=== PATIENT | female | born 1970 | race African-American/Black ===

== ENCOUNTER 2017-07-17 13:55 | Emergency (ER) | payer OTHER ==
[~2017-07-17] VITALS: Ht 162.6 cm; Wt 81.7 kg
[~2017-07-17 13:55] MED LIST: ATIVAN0.5 MG; BACTRIM DS TAB1 EACH PO
[2017-07-17 14:54] LABS: ABSOLUTE EOSINOPHILS 0.1 thou/uL (0.0-0.7); ABSOLUTE LYMPHOCYTES 3.4 thou/uL (0.8-5.3); ABSOLUTE MONOCYTES 0.5 thou/uL (0.0-1.2); ABSOLUTE NEUTROPHILS 3.7 thou/uL (1.6-8.1); BASOPHILS 0.5 %; EOSINOPHILS 1.6 %; HEMATOCRIT 38.5 % (37.0-47.0); HEMOGLOBIN 12.6 gm/dL (12.0-15.0); LYMPHOCYTES 43.7 %; MCH 28.2 pg (26.0-34.0); MCHC 32.8 g/dL (28.0-37.0); MCV 86.1 fL (80.0-100.0); MONOCYTES 6.5 %; MPV 8.9 fl. (7.2-11.1); NUCLEATED RBCS 0 /100WBC; PLATELET COUNT* 307 thou/uL (150-400); POLYS 47.7 %; RBC 4.47 mil/uL (4.20-5.00); RDW-CV 13.5 % (10.5-14.5); WBC 7.7 thou/uL (4.0-11.0)
[2017-07-17 14:59] LABS: ANION GAP 7 mmol/L (7-16); BUN 14 mg/dL (7-18); CALCIUM 9.1 mg/dL (8.5-10.1); CHLORIDE 105 mmol/L (98-107); CO2 29 mmol/L (21-32); CREATININE 0.9 mg/dL (0.6-1.3); GLUCOSE 111 mg/dL (70-99); POTASSIUM 3.7 mmol/L (3.5-5.1); SODIUM 141 mmol/L (136-145)
[2017-07-17 15:09] LABS: ALBUMIN 3.6 g/dL (3.4-5.0); ALKALINE PHOSPHATASE 80 U/L (46-116); LIPASE 94 U/L (73-393); NT-PRO BRAIN NAT PEPTIDE 101 pg/mL (<300); SGOT 18 U/L (15-37); SGPT 20 U/L (30-65); TOTAL BILIRUBIN 0.2 mg/dL (<0.1-1.0); TOTAL PROTEIN 7.4 g/dL (6.4-8.2); TROPONIN-I LEVEL <0.06 ng/mL (<0.06)
[2017-07-17] MEDS ORDERED: CARAFATE 1 GM TA1 GM PO (16:34)
[2017-07-17] MEDS ORDERED: OMEPRAZOLE 20 M20 M1 PO (16:35)
[2017-07-17 16:51] VITALS: BP 154/81
--- NOTE | 2017-07-18 14:01 | EKG ---
[place] [address] ELECTROCARDIOGRAM REPORT Name: ALF QUINONEZ Room: [facility]#: [id number] Admission: 07/17/17 Attend Phys: Discharge: 07/17/17 Date of : 66 Report #: [id number] THIS REPORT FOR: //name// [facility] ED Test Date: 2017-07-17 Test Time: 14:00:08 Pat Name: ALF QUINONEZ Department: Room: Gender: F Medical Records Analyst: : 1970 Requested By: Annmarie Shannon Order Number: [id number] MD: Lucas Bonilla Measurements Intervals Points Rate: 56 P: 56 IL: 166 QRS: 28 QRSD: 91 T: 58 QT: 441 QTc: 426 Interpretive Statements Sinus rhythm No previous ECG available for comparison Electronically Signed On 07-18-2017 14:00:59 CDT by Lucas Bonilla [email or web address] <ELECTRONICALLY SIGNED> By: Lucas Bonilla MD, [facility] 07/18/17 1400 1400 [facility] [place] Lucas Bonilla MD, FACC /EPI
== END 2017-07-17 16:52 | disposition home or self-care (01) ==
LOC: M.ERS 13:55
PROVIDERS: Personal Emergency Response Attendant
DX: K20.9 Esophagitis, unspecified (principal); R07.89 Other chest pain; F41.9 Anxiety disorder, unspecified; Z88.5 Allergy status to narcotic agent; Z88.6 Allergy status to analgesic agent

== ENCOUNTER → 2017-08-03 | Outpatient (CLI) | payer OTHER ==
[~2017-08-03] MED LIST changes: +CARAFATE 1 GM TA1 GM PO; +OMEPRAZOLE 20 M20 M1 PO
== END ==
LOC: M.CT 10:37
DX: Z13.6 Encounter for screening for cardiovascular disorders (principal)

== ENCOUNTER → 2017-08-03 | Outpatient (CLI) | payer OTHER ==
--- NOTE | 2017-08-03 12:05 | EXE ---
[place] [address] STRESS ECHOCARDIOGRAM Name: ALF QUINONEZ Room: [facility]#: [id number] Admission: 08/03/17 Attend Phys: Lucas Bonilla, Discharge: Date of : 66 Date of Service: 08/03/17 1205 Report #: [id number] THIS REPORT FOR: //name// APPROVED REPORT Study performed: 08/03/2017 11:24:22 Exam: Stress Echocardiogram Indication: Chest pain Patient Location: Out-Patient Stress Nurse: Millie Magana RN Supervising Physician: John Law MD Status: routine Ht: 5 ft 4 in HR: 64 bpm BP: 155/103 mmHg Rhythm: NSR Medical History Cardiac Risk Factors: FHX of CAD Procedure The patient underwent an Exercise Stress Test using the Yury Protocol. Blood pressure, heart rate, and EKG were monitored. An Echocardiogram was performed by er medical technician in four stages in quad fashion. At peak stress, four selected images were obtained and placed side by side with resting images for comparison. Stress Test Details Stress Test: Exercise stress testing was performed using a Yury protocol. HR Resting HR: 64 bpm Max Heart Rate (APMHR): 171 bpm Max HR Achieved: 158 bpm Target HR (85% APMHR): 145 bpm % of APMHR: 92 Recovery HR: 81 bpm HR response to stress: Normal HR response to stress BP Resting BP: 155/103 mmHg Max BP: 176/86 mmHg Recovery BP: 139/82 mmHg ECG Resting ECG: [place] [address] STRESS ECHOCARDIOGRAM Name: ALF QUINONEZ Room: [facility]#: [id number] Admission: 08/03/17 Attend Phys: Lucas Bonilla, Discharge: Date of : 66 Date of Service: 08/03/17 1205 Report #: [id number] Stress ECG: Sinus Rhythm ST Change: none Recovery ECG: Sinus Rhythm Recovery ST Change: Non-ischemic Clinical Reason for Termination: Dyspnea, Maximal effort Stress Symptoms: Leg Fatigue Exercise duration: 10 min 37 sec Highest Stage Achieved: Stage 4: 4.2 mph at 16% grade. Exercise capacity: 12.82 METs Stress ECG Conclusion negative ecg Pre-Stress Echo The resting Echocardiogram showed normal left ventricular contractility with an estimated Ejection Fraction of about >55%. Mild left ventricular hypertrophy.Mild non stenotic thickening of aortic and mitral valve. Post-Stress Echo LV chamber size decreases, LV ejection fraction increases, no new wall motion abnormalities are seen. Conclusion Clinical Response: Non-ischemic Exercise Capacity: Superior Stress ECG Response: Non-ischemic Stress Echo Images: Non-ischemic Negative TM stress echo for ischemia. Other Information Study Quality: Good <Conclusion> Negative TM stress echo for ischemia. <ELECTRONICALLY SIGNED> By: John Law MD, FACC 08/03/171204 04 04 John Law MD, FACC /INF
== END ==
LOC: M.CRD 10:44
DX: R07.2 Precordial pain (principal); Z95.1 Presence of aortocoronary bypass graft